=== PATIENT | female | born 1945 ===

== ENCOUNTER 2018-04-18 18:49 | Emergency (ER) | payer MEDICARE, MEDICAID ==
[2018-04-18 19:06] VITALS: BP 128/77; O2SAT 98
--- NOTE | 2018-04-18 19:31 | C.PDOC ---
History Of Present Illness 73 year old female presents to the emergency department with complains of an itchy rash to her legs bilaterally. Patient reports that she went to a pharmacy where she was given "some cream" for which she doesn't remember the name. She states that she applied the cream to her legs, but this afternoon she developed three itchy red spots on her left buttock. Time Seen by Provider: 04/18/18 19:08 Chief Complaint (Nursing): Abnormal Skin Integrity History Per: Patient History/Exam Limitations: no limitations Onset/Duration Of Symptoms: Hrs Current Symptoms Are (Timing): Still Present Location Of Injury: Right: Leg, Left: Buttock, Leg Quality Of Symptoms: Itching Past Medical History Reviewed: Historical Data, Nursing Documentation, Vital Signs Vital Signs: Last Vital Signs Temp 98 F 04/18/18 20:01 Pulse 78 04/18/18 20:01 Resp 20 04/18/18 20:01 BP 128/77 04/18/18 19:03 Pulse Ox 98 04/18/18 19:50 - Medical History PMH: No Chronic Diseases Surgical History: No Surg Hx Family History: States: No Known Family Hx - Social History Hx Alcohol Use: No Hx Substance Use: No Review Of Systems Except As Marked, All Systems Reviewed And Found Negative. Cardiovascular: Negative for: Chest Pain Respiratory: Negative for: Shortness of Breath Skin: Positive for: Other (itchy spots on left buttock) Physical Exam - Physical Exam Appears: Non-toxic, No Acute Distress Skin: Warm, Dry, Rash (maculopapular rash present on bilateral legs, no open sores), Other (three 2.5 cm in diameter spots on left buttock. ) Head: Atraumatic, Normacephalic Eye(s): bilateral: Normal Inspection Nose: Normal Oral Mucosa: Moist Tongue: Normal Appearing, No Swelling Lips: Normal Appearing, No Swelling Throat: Normal, No Erythema, No Exudate Neck: Normal, Supple Chest: Symmetrical, No Tenderness Cardiovascular: Rhythm Regular, No Murmur Respiratory: No Rales, No Rhonchi, No Wheezing, Other (speaking full sentences) Neurological/Psych: Oriented x3, Normal Speech, Normal Cognition ED Course And Treatment O2 Sat by Pulse Oximetry: 98 (RA) Pulse Ox Interpretation: Normal Progress Note: Patient treated with Benadryl and Pepcid. Referred to occupational therapy director. Disposition - Disposition Disposition: HOME/ ROUTINE Disposition Time: 19:43 Condition: STABLE Additional Instructions: Follow up with occupational therapy director within 1-2 days. Return to Ed if feel worse. Prescriptions: DiphenhydrAMINE [Benadryl] 25 mg PO .Q4-6 H #30 cap Famotidine [Pepcid] 20 mg PO BID #20 tab Instructions: Skin Rash Forms: [employer] (Maltese) - Clinical Impression Clinical Impression: Rash - PA / WEBSITE ADMIN / Resident Statement MD/DO has reviewed & agrees with the documentation as recorded. - Scribe Statement The provider has reviewed the documentation as recorded by the Scribe (Saman Bliss) All medical record entries made by the Scribe were at my direction and personally dictated by me. I have reviewed the chart and agree that the record accurately reflects my personal performance of the history, physical exam, medical decision making, and the department course for this patient. I have also personally directed, reviewed, and agree with the discharge instructions and disposition.
[2018-04-18 20:02] VITALS: PULSE 78; RESP 20; TEMP 98
== END 2018-04-18 20:01 | disposition home or self-care (01) ==
LOC: C.ER 18:49
DX: R21 Rash and other nonspecific skin eruption (principal)